=== PATIENT | male | born 1975 | race Caucasian/White ===

== ENCOUNTER 2024-01-20 06:43 | Emergency (ER) | payer SELFPAY ==
[2024-01-20] MEDS: Sulfamethoxazole/Trimethoprim 800-160 MG Tab PO ONE (06:55)
[2024-01-20] MEDS: predniSONE 10 MG Tab PO ONE (07:15)
== END 2024-01-20 07:31 | disposition home or self-care (01) ==
LOC: MW.ED 06:43
DX: M54.41 Lumbago with sciatica, right side (principal); Z79.899 Other long term (current) drug therapy; Z95.0 Presence of cardiac pacemaker
CPT/HCPCS: 99283; A9270